=== PATIENT | female | born 1980 ===

== ENCOUNTER 2018-08-29 10:19 | Emergency (ER) | payer BC ==
[~2018-08-29] VITALS: Ht 157.5 cm; Wt 63.5 kg
== END 2018-08-29 15:08 | disposition home or self-care (01) ==
LOC: ER 10:19
DX: S63.283A Dislocation of proximal interphalangeal joint of left middle finger, initial encounter (principal); W18.2XXA Fall in (into) shower or empty bathtub, initial encounter; Y93.E8 Activity, other personal hygiene; Y92.89 Other specified places as the place of occurrence of the external cause; Y99.8 Other external cause status